=== PATIENT | male | born 1990 | race Caucasian/White ===

== ENCOUNTER 2017-03-27 13:44 | Emergency (ER) | payer OTHER ==
[~2017-03-27] VITALS: Ht 172.7 cm; Wt 117.9 kg
[2017-03-27 13:50] VITALS: BP 145/86
[2017-03-27] MEDS ORDERED: CETIRIZINE HCL 10 MG TABLET. PO STA (14:02)
[2017-03-27] MEDS ORDERED: TRIA15OI TP (14:11)
[2017-03-27] MEDS ORDERED: FAMO20TA5 PO (14:11)
[2017-03-27] MEDS ORDERED: DIPH25CA58 PO (14:11)
[2017-03-27] MEDS ORDERED: PRED-220 PO (14:11)
--- NOTE | 2017-03-27 14:11 | PHYS DOC ---
Past Medical History Past Medical History: No Pertinent History Past Surgical History: No Surgical History Alcohol Use: None Drug Use: None Adult General Chief Complaint Chief Complaint: SKIN PROBLEM HPI HPI Patient is a 26 year old male who presents with poison cyn rash that began today while mowing. Review of Systems Review of Systems Constitutional: Denies fever or chills [] Eyes: Denies change in visual acuity, redness, or eye pain [] HENT: Denies nasal congestion or sore throat [] Respiratory: Denies cough or shortness of breath [] Cardiovascular: No additional information not addressed in HPI [] GI: Denies abdominal pain, nausea, vomiting, bloody stools or diarrhea [] : Denies dysuria or hematuria [] Musculoskeletal: Denies back pain or joint pain [] Integument: Poison ycn rash Neurologic: Denies headache, focal weakness or sensory changes [] Current Medications Current Medications Current Medications Medications (Trade) Dose Ordered Sig/Ac Start Time Stop Time Status Last Admin Dose Admin Cetirizine HCl (ZyrTEC) 10 mg 1X STAT 03/27/17 14:02 03/27/17 14:03 Famotidine (Pepcid) 20 mg 1X ONCE 03/27/17 14:15 03/27/17 14:16 UNV Prednisone (Prednisone) 60 mg 1X ONCE 03/27/17 14:30 03/27/17 14:31 Allergies Allergies Allergies Coded Allergies Type Severity Reaction Last Updated Verified No Known Drug Allergies 03/27/17 No Physical Exam Physical Exam Constitutional: Well developed, well nourished, no acute distress, non-toxic appearance. [] HENT: Normocephalic, atraumatic, bilateral external ears normal, oropharynx moist, no oral exudates, nose normal. [] Eyes: PERRLA, EOMI, conjunctiva normal, no discharge. [] Neck: Normal range of motion, no tenderness, supple, no stridor. [] Cardiovascular:Heart rate regular rhythm, no murmur [] Lungs & Thorax: Bilateral breath sounds clear to auscultation [] Abdomen: Bowel sounds normal, soft, no tenderness, no masses, no pulsatile masses. [] Skin: Patient has mild amount of erythematous macular rash consistent with poison cyn on his face and bilateral upper extremities. Extremities hard to examine due to calamine lotion application. Back: No tenderness, no CVA tenderness. [] Extremities: No tenderness, no cyanosis, no clubbing, ROM intact, no edema. [] Neurologic: Alert and oriented X 3, normal motor function, normal sensory function, no focal deficits noted. [] Psychologic: Affect normal, judgement normal, mood normal. [] Current Patient Data Vital Signs Vital Signs Date Time Temp Pulse Resp B/P (MAP) Pulse Ox O2 Delivery O2 Flow Rate FiO2 03/27/17 13:50 98.6 94 20 97 Room Air 98.6 EKG EKG [] Radiology/Procedures Radiology/Procedures [] Course & Med Decision Making Course & Med Decision Making Pertinent Labs and Imaging studies reviewed. (See chart for details) Patient is in the ED with poison cyn rash. Discharged with a dose of prednisone and Benadryl and famotidine. Follow-up with PCP and principal technologist in 2 weeks as needed. Dragon Disclaimer Dragon Disclaimer This electronic medical record was generated, in whole or in part, using a voice recognition dictation system. Departure Departure Impression: Primary Impression: Contact dermatitis due to poison cyn Disposition: HOME, SELF-CARE Condition: STABLE Referrals: NON,STAFF (PCP) CELESTE MA MD follow up in two weeks Patient Instructions: Poison Cyn, [id number] Additional Instructions: You were seen with poison cyn rash. Take the prescribed medicines as ordered. Follow-up with the provided principal technologist in 2 weeks as needed. Scripts Triamcinolone Acetonide (TRIAMCINOLONE ACETONIDE 0.1% OINT) 15 Gm Oint...g. 1 JOHANA TP BID for WOUND CARE, #1 TUBE MIX WITH EUCERIN DIRECTED BY PHYSICIAN Prov: KESHIA SOUZA APRN 03/27/17 Diphenhydramine Hcl (BENADRYL) 25 Mg Capsule 1 CAP PO Q4HRS W/A, #30 CAP 1 Refill Prov: KESHIA SOUZA APRN 03/27/17 Famotidine (FAMOTIDINE) 20 Mg Tablet 20 MG PO HS, #14 TAB Prov: KESHIA SOUZA APRN 03/27/17 Prednisone (PREDNISONE) 10 Mg Tablet 10 MG PO UD for PREDNISONE TAPER, #39 TAB 0 Refills Take 3 tablets by mouth twice a day for 3 days, then take 2 tablets by mouth twice a day for 3 days, then take 1 tablet by mouth twice a day for 3 days, then take 1 tablet by mouth daily x 3 days, then stop. Prov: KESHIA SOUZA APRN 03/27/17 KESHIA SOUZA APRN Mar 27, 2017 14:11
[2017-03-27] MEDS ORDERED: FAMOTIDINE 20 MG TABLET. PO ONE (14:30)
[2017-03-27] MEDS ORDERED: predniSONE 20 MG TABLET PO ONE (14:30)
== END 2017-03-27 14:18 | disposition home or self-care (01) ==
LOC: ER 13:44
DX: L23.7 Allergic contact dermatitis due to plants, except food (principal)
CPT/HCPCS: 99284; J7512

== ENCOUNTER 2019-01-22 18:22 | Emergency (ER) | payer SELFPAY ==
[~2019-01-22] VITALS: Ht 182.9 cm; Wt 99.8 kg
[~2019-01-22 18:22] MED LIST: DIPH25CA58 PO; FAMO20TA5 PO; PRED-220 PO; TRIA15OI TP
--- NOTE | 2019-01-22 18:37 | PHYS DOC ---
Past Medical History Past Medical History: No Pertinent History (KESHIA SOUZA APRN) Past Surgical History: No Surgical History (KESHIA SOUZA APRN) Alcohol Use: None Drug Use: None (KESHIA SOUZA APRN) Adult General Chief Complaint Chief Complaint: UPPER EXTREMITY INJURY HPI HPI Patient is a 28 year old male who presents with 5 out of 10 sharp left wrist and forearm pain mostly on the dorsal aspect that began today after he slipped and fell during soccer. She denies any loss of consciousness. States the pain is worse on range of motion and touching the areas. Patient denies anything specifically relieving the pain. (KESHIA SOUZA APRN) Review of Systems Review of Systems Constitutional: Denies fever or chills [] Musculoskeletal: Reports left wrist and left forearm pain Integument: Denies rash or skin lesions [] Neurologic: Denies headache, focal weakness or sensory changes [] All other systems were reviewed and found to be within normal limits, except as documented in this note. (KESHIA SOUZA APRN) Current Medications Current Medications Current Medications Medications (Trade) Dose Ordered Sig/Ac Start Time Stop Time Status Last Admin Dose Admin Acetaminophen/ Hydrocodone Bitart (Lortab 5/325) 2 tab 1X ONCE 01/22/19 19:30 01/22/19 19:31 DC 01/22/19 19:29 2 TAB Naproxen (Naprosyn) 500 mg 1X STAT 01/22/19 19:18 01/22/19 19:21 DC 01/22/19 19:29 500 MG (CRISTIANO LEGER DO) Allergies Allergies Allergies Coded Allergies Type Severity Reaction Last Updated Verified No Known Drug Allergies 03/27/17 No (CRISTIANO LEGER DO) Physical Exam Physical Exam Constitutional: Well developed, well nourished, no acute distress, non-toxic appearance. [] Skin: Warm, dry, no erythema, no rash. [] Back: No tenderness, no CVA tenderness. [] Extremities: Left wrist with appears deformed on the dorsal aspect. Soft tissue swelling noted on the dorsal aspect of the left wrist. No scaphoid tenderness. Tenderness diffusely on the left distal forearm as well as left wrist. Full passive range of motion to the left wrist. Full active range of motion to the left fingers and forearm. Adequate radial, medial, ulnar sensation to the left fingers. +2 left radial pulse. Cap refill less than 2 seconds the left fingers. Neurologic: Alert and oriented X 3, normal motor function, normal sensory function, no focal deficits noted. [] Psychologic: Affect normal, judgement normal, mood normal. [] (KESHIA SOUZA APRN) Current Patient Data Vital Signs Vital Signs Date Time Temp Pulse Resp B/P (MAP) Pulse Ox O2 Delivery O2 Flow Rate FiO2 01/22/19 18:45 98.5 79 16 122/68 (86) 99 Room Air 98.5 (CRISTIANO LEGER DO) EKG EKG [] (KESHIA SOUZA APRN) Radiology/Procedures Radiology/Procedures [] (KESHIA SOUZA APRN) Course & Med Decision Making Course & Med Decision Making Pertinent Labs and Imaging studies reviewed. (See chart for details) This is a 28-year-old male patient who presents to the ED today complaining of left wrist and left forearm pain status post falling while playing soccer. Left wrist and left forearm x-rays interpreted by Dr. Leger noted for distal radius fracture. Patient placed in a volar splint by the cable television technician, neurovascular exam is intact. Ice elevation encouraged. Follow-up with orthopedic doctor by calling them on Friday. Prescription for pain medicine provided. (KESHIA SOUZA APRN) Dragon Disclaimer Dragon Disclaimer This electronic medical record was generated, in whole or in part, using a voice recognition dictation system. (KESHIA SOUZA APRN) Departure Departure Impression: Primary Impression: Distal radial fracture Additional Impression: Fall from standing Disposition: 01 HOME, SELF-CARE Condition: STABLE Referrals: NON,STAFF (PCP) LIDIA WEISS MD call him on Friday and get a follow up appointment Patient Instructions: Radial Fracture Additional Instructions: You were evaluated in the emergency room and noted to have left wrist fracture. Try to ice and elevate the extremity. Contact the provided orthopedic doctor on Friday and set up a follow-up appointment. Scripts Naproxen (NAPROXEN) 500 Mg Tablet 1 TAB PO BID, #20 TAB 0 Refills Prov: KESHIA SOUZA APRN 01/22/19 Hydrocodone/Apap 5-325 (NORCO 5-325 TABLET) 1 Each Tablet 1 TAB PO Q6HRS, #20 TAB Prov: KESHIA SOUZA APRN 01/22/19 Attending Signature Attending Signature I have reviewed the PA/REGISTERED RADIOLOGIC TECHNOLOGIST's note and plan of care. I was available for consultation as needed during the patient's visit in the emergency department. I agree with the clinical impression, plan, and disposition. (CRISTIANO LEGER DO) Problem Qualifiers Primary Impression: Distal radial fracture Encounter type: initial encounter Fracture type: closed Fracture morphology: unspecified fracture morphology Laterality: left Qualified Codes: S52.502A - Unspecified fracture of the lower end of left radius, initial encounter for closed fracture Additional Impression: Fall from standing Encounter type: initial encounter Qualified Codes: W19.XXXA - Unspecified fall, initial encounter KESHIA SOUZA APRN Jan 22, 2019 18:37 CRISTIANO LEGER DO Jan 22, 2019 22:24
[2019-01-22 18:45] VITALS: BP 122/68
[2019-01-22] MEDS ORDERED: NAPR-514 PO (19:17)
[2019-01-22] MEDS ORDERED: HYDR-3164 PO (19:17)
[2019-01-22] MEDS ORDERED: NAPROXEN 500 MG TABLET PO STA (19:18)
[2019-01-22] MEDS ORDERED: HYDROcodone/APAP 5/325MG 1 TAB TABLET PO ONE (19:30)
--- NOTE | 2019-01-23 09:19 | RAD ---
EXAM: 1. Left wrist 3 views. 2. Left forearm 2 views. HISTORY: Fall with left wrist and forearm pain. COMPARISON: None. FINDINGS: There is a nondisplaced comminuted intra-articular fracture of the left distal radius. A sagittally oriented fracture line intersects the distal radial articular surface at the scapholunate interval. There is soft tissue swelling dorsally. Radiocarpal and intercarpal joint spaces and alignment are maintained. More proximally, there are no additional fractures within the radius or ulna. The joint spaces and alignment of the left elbow are maintained. IMPRESSION: 1. Comminuted, intra-articular, nondisplaced fracture of the left distal radius. Electronically signed by: Raymon Fonseca MD (01/23/2019 9:16 AM) [facility]
== END 2019-01-22 19:42 | disposition home or self-care (01) ==
LOC: ER 18:22
DX: S52.572A Other intraarticular fracture of lower end of left radius, initial encounter for closed fracture (principal); W01.0XXA Fall on same level from slipping, tripping and stumbling without subsequent striking against object, initial encounter; Y93.66 Activity, soccer; Y92.89 Other specified places as the place of occurrence of the external cause; Y99.8 Other external cause status
CPT/HCPCS: 29125; 73090; 73110; 99284